=== PATIENT | male | born 1995 | race Hispanic/Latino ===

== ENCOUNTER 2016-10-30 19:51 | Emergency (ER) | payer SELFPAY ==
[2016-10-30] MEDS ORDERED: predniSONE 20 MG TAB ONE (20:22)
== END 2016-10-30 20:25 | disposition home or self-care (01) ==
LOC: BURERS 19:51
DX: L25.9 Unspecified contact dermatitis, unspecified cause (principal)
CPT/HCPCS: 99282; J7506

== ENCOUNTER 2017-07-01 06:56 | Emergency (ER) | payer SELFPAY | END 2017-07-01 07:25 | disposition critical access hospital (66) | LOC: BURERS 06:56 | DX: M54.5 Low back pain (principal); X50.9XXA Other and unspecified overexertion or strenuous movements or postures, initial encounter | CPT/HCPCS: 99283 ==

== ENCOUNTER 2021-03-03 16:25 | Emergency (ER) | payer OTHER, SELFPAY ==
[~2021-03-03 16:25] MED LIST: Iopamidol 370 76% 100 ML VIAL ONE
[2021-03-03 16:57] LABS: #Basophils 0.1 thou/uL (0.0-0.2); #Eosinphils 0.1 thou/uL (0.0-0.7); #Lymphocytes 3.1 thou/uL (1.20-3.40); #Monocytes 1.2 thou/uL (0.11-0.59); #Neutrophils 6.4 thou/uL (1.40-6.50); %Eosinophils 0.7 % (0.0-10.0); %Lymphocytes 28.6 % (21.0-51.0); %Monocytes 10.6 % (0.0-10.0); %Neutrophils 59.1 % (42.0-75.0); Hemoglobin 17.5 g/dL (14.0-18.0); Mean Corpuscular HGB CONC 34.5 g/dL (32.0-36.0); Mean Corpuscular Hemoglobin 30.8 pg (27.0-31.0); Mean Corpuscular Volume 89.4 fL (78.0-98.0); Mean Platelet Volume 8.6 fL (7.4-10.4); Platelet Count 306 thou/uL (130-400); RBC Distribution Width 10.8 % (11.5-14.5); Red Blood Cell (RBC) Count 5.66 mill/uL (4.70-6.10); White Blood Cell (WBC) Count 10.9 thou/uL (4.8-10.8)
[2021-03-03] MEDS ORDERED: Ondansetron PF 4 MG/2 ML Vial ONE (17:00)
[2021-03-03 17:13] LABS: ALT (SGPT) 25 U/L (8-55); AST (SGOT) 18 U/L (5-34); Albumin 4.7 g/dL (3.5-5.0); Alkaline Phosphatase 80 U/L (40-110); Anion Gap 15 mmol/L (10-20); BUN (Urea Nitrogen) 9 mg/dL (8.9-20.6); Bilirubin, Total 0.5 mg/dL (0.2-1.2); Calc. Creatinine Clearance 0 mL/min (70-130); Calcium 9.7 mg/dL (7.8-10.44); Carbon Dioxide 23 mmol/L (22-29); Chloride 107 mmol/L (98-107); Globulin 3.3 g/dL (2.4-3.5); Glucose 105 mg/dL (70-105); Potassium 4.1 mmol/L (3.5-5.1); Sodium 141 mmol/L (136-145)
== END 2021-03-03 18:15 | disposition home or self-care (01) ==
LOC: BURERS 16:25
DX: K43.9 Ventral hernia without obstruction or gangrene (principal)
CPT/HCPCS: 74177; 80053; 83605; 85025; 96374; J2405; Q9967